=== PATIENT | male | born 1960 | race Caucasian/White ===

== ENCOUNTER → 2017-06-16 | Outpatient (CLI) | payer BC | END | disposition home or self-care (01) | LOC: CFH 10:32 | PROVIDERS: ATTEND Nurse Practitioner Primary Care | DX: R05 Cough (principal); R53.83 Other fatigue; R73.01 Impaired fasting glucose; R79.9 Abnormal finding of blood chemistry, unspecified | CPT/HCPCS: 71046 ==

== ENCOUNTER 2019-03-04 11:54 | Emergency (ER) | payer BC ==
[~2019-03-04] VITALS: Ht 188 cm; Wt 85.8 kg
[2019-03-04] MEDS ORDERED: ASPIRIN 81 MG TABLET CHEW ONE (12:16)
--- NOTE | 2019-03-04 12:20 | NUR ---
PT AMBULATORY TO ROOM 2 W/. C/O CP STARTED AT 0615. STATES HE WORKED OUT THIS AM W/O ANY ISSUES AND THEN STARTED FEELING THE CP AGAIN AFTER WORKING OUT. PT RESTING ON GURNEY. NADN. VSS. MONITORS APPLIED. WARM BLANKET PROVIDED. ERP DR. ALLISON AT BEDSIDE.
[2019-03-04] MEDS ORDERED: ASPIRIN 81 MG TABLET CHEW PO ONE (12:30)
[2019-03-04 12:34] LABS: BASOPHILS # (AUTO) 0.03 x10^3/uL (0-0.1); BASOPHILS % (AUTO) 1 % (0-1); EOSINOPHILS # (AUTO) 0.02 x10^3/uL (0-0.4); EOSINOPHILS % (AUTO) 0 % (1-7); LYMPHOCYTES # (AUTO) 1.83 x10^3/uL (1-3.4); LYMPHOCYTES % (AUTO) 32 % (22-44); MD NO; MEAN CORPUSCULAR HEMOGLOBIN 31.2 pg (27.5-34.5); MEAN CORPUSCULAR HGB CONC 32.9 g/dL (33.2-36.2); MEAN PLATELET VOLUME 8.3 fL (7.4-10.4); MONOCYTES # (AUTO) 0.62 x10^3/uL (0.2-0.8); MONOCYTES % (AUTO) 11 % (2-9); NEUTROPHILS # (AUTO) 3.18 x10^3/uL (1.8-6.8); NEUTROPHILS % (AUTO) 56 % (42-75); PLATELET COUNT 234 x10^3/uL (130-400); RED BLOOD COUNT 4.84 x10^6/uL (4.38-5.82); RED CELL DISTRIBUTION WIDTH 14.3 % (9.4-14.8)
[2019-03-04 12:46] LABS: ALBUMIN 4.2 g/dL (3.4-5.0); ANION GAP 5 mmol/L (5-15); CHLORIDE 107 mmol/L (98-107); CREATININE 1.06 mg/dL (0.7-1.3)
[2019-03-04 12:50] LABS: TROPONIN I < 0.015 ng/mL (0.000-0.045)
[2019-03-04 13:13] VITALS: BP 118/76
--- NOTE | 2019-03-04 13:13 | NUR ---
PT RESTING ON GURNEY. NADN. [place].
--- NOTE | 2019-03-04 13:41 | NUR ---
REPORT GIVEN TO SAE WEBSTER.
--- NOTE | 2019-03-04 13:42 | NUR ---
RECEIVED BEDSIDE REPORT FROM SAE UNGER. ASSUMING PT CARE AT THIS TIME.
--- NOTE | 2019-03-04 13:43 | NUR ---
PT BACK FROM IMAGING AT THIS TIME. BEDSIDE. STATES "HIS MOTHER A FEW WEEKS AGO. HE HASN'T BEEN SLEEPING SINCE."
[2019-03-04] MEDS ORDERED: OMNIPAQUE 350 MG/ML, 100ML BOTTLE ONE (13:44)
--- NOTE | 2019-03-04 14:47 | NUR ---
LATE ENTRY FOR 1435 Patient/Caregiver given discharge instructions and they have confirmed that they understand the instructions. Patient ambulatory with steady gait. PT LEFT WITH ALL PERSONAL BELONGINGS.
== END 2019-03-04 14:50 | disposition home or self-care (01) ==
LOC: ED 12:58
DX: R07.2 Precordial pain (principal); E78.5 Hyperlipidemia, unspecified; Z87.891 Personal history of nicotine dependence
CPT/HCPCS: 36415; 71045; 71275; 80048; 82040; 83880; 84484; 85025; 85379; 93005; 99284; Q9967

== ENCOUNTER 2019-04-05 08:49 | Outpatient (CLI) | payer BC | END 2019-04-05 23:59 | disposition home or self-care (01) | LOC: CFH 08:49 | PROVIDERS: ATTEND Physician Assistant Medical | DX: R07.89 Other chest pain (principal); E78.5 Hyperlipidemia, unspecified; Z87.891 Personal history of nicotine dependence | CPT/HCPCS: 93306 ==

== ENCOUNTER → 2019-05-12 | Outpatient (CLI) | payer BC | END | disposition home or self-care (01) | LOC: CFH 08:22 | PROVIDERS: ATTEND Physician Assistant Medical | DX: R07.89 Other chest pain (principal) | CPT/HCPCS: 78452; 93017; A9502 ==